=== PATIENT | male | born 1965 | race African-American/Black ===

== ENCOUNTER 2021-06-07 15:08 | Inpatient (IN) | payer OTHER ==
[2021-06-07] MEDS ORDERED: chlordiazePOXIDE HCL 25 MG CAPSULE PO PRN (15:55)
[2021-06-07] MEDS ORDERED: IBUPROFEN 400 MG TABLET (FP) PO PRN (15:55)
[2021-06-07] MEDS ORDERED: BENZOCAINE/MENTHOL (CHLORASEPTIC ) LOZENGE MM PRN (15:55)
[2021-06-07] MEDS ORDERED: MAG HYDROX/AL HYDROX/SIMETH 30 ML UNIT-DOSE CUP PO PRN (15:55)
[2021-06-07] MEDS ORDERED: MAGNESIUM HYDROX 2400MG/30ML ORAL SUSPENSION 30 ML CUP PO PRN (15:55)
[2021-06-07] MEDS ORDERED: MAGNESIUM CITRATE 300 ML BOTTLE PO PRN (15:55)
[2021-06-07] MEDS ORDERED: ONDANSETRON *ODT* 4 MG TABLET SL PRN (15:55)
[2021-06-07] MEDS ORDERED: ACETAMINOPHEN 325 MG TABLET (FP) PO PRN ×2 (15:55)
[2021-06-07] MEDS ORDERED: DICYCLOMINE HCL 10 MG CAPSULE PO PRN (15:55)
[2021-06-07] MEDS ORDERED: BISMUTH SUBSALICYLATE 524 MG/30 ML PO PRN (15:55)
[2021-06-07] MEDS ORDERED: NICOTINE 10 MG CARTRIDGE (INHALER) IH PRN (15:55)
[2021-06-07] MEDS ORDERED: METHOCARBAMOL 500 MG TABLET PO PRN (15:55)
[2021-06-07] MEDS ORDERED: LOPERAMIDE HCL 2 MG CAPSULE PO PRN (15:55)
[2021-06-07 22:24] VITALS: BMI 31.1
[2021-06-08] MEDS: INSULIN SLIDING SCALE (NOVOLOG) 1 VIAL SQ SCH ×3 (00:36→16:20)
[2021-06-08] MEDS: metFORMIN HCL 500 MG TABLET (FP) PO SCH ×3 (00:36→16:21)
[2021-06-08] MEDS: PRENATAL VITAMINS W/ FOLIC ACID TABLET (FP) PO SCH ×2 (00:36→11:33)
[2021-06-08] MEDS: chlordiazePOXIDE HCL 25 MG CAPSULE PO SCH ×6 (00:37→22:44)
[2021-06-08] MEDS: hydrOXYzine PAMOATE 25 MG CAPSULE (FP) PO SCH ×7 (00:37→22:44)
[2021-06-08] MEDS: THIAMINE HCL 100 MG TABLET (FP) PO SCH ×2 (00:49→22:44)
[2021-06-08] MEDS: MELATONIN 5 MG TABLETS PO SCH ×2 (00:50→22:45)
[2021-06-08 10:47] LABS: HEMATOCRIT 37.4 % (35.4-49); HEMOGLOBIN 12.7 GM/dL (11.7-16.9); MCH 31.2 pg (25.7-33.7); MCHC 34.1 g/dl (32.0-35.9); MEAN CELL VOLUME 91.5 fl (80-96); PLATELET COUNT 260 10^3/uL (134-434); RBC 4.08 M/mm3 (4.00-5.60); RDW 13.8 % (11.9-15.9); WHITE BLOOD COUNT 4.7 K/mm3 (4.0-10.0)
[2021-06-08 10:49] LABS: BLOOD UREA NITROGEN 12.7 mg/dL (7-18)
[2021-06-08 10:54] LABS: CALCIUM 8.6 mg/dL (8.5-10.1)
[2021-06-08 10:55] LABS: CREATININE 1.1 mg/dL (0.55-1.3)
[2021-06-08 10:57] LABS: BILIRUBIN,TOTAL 0.3 mg/dL (0.2-1); TOT PROT 6.6 g/dl (6.4-8.2)
[2021-06-08] MEDS ORDERED: INSULIN (NOVOLOG) ASPART 100 UNITS/ML 10ML VIAL ONE (17:51)
[2021-06-09] MEDS: chlordiazePOXIDE HCL 25 MG CAPSULE PO SCH ×4 (06:23→23:43)
[2021-06-09] MEDS: hydrOXYzine PAMOATE 25 MG CAPSULE (FP) PO SCH ×5 (06:23→23:43)
[2021-06-09] MEDS: metFORMIN HCL 500 MG TABLET (FP) PO SCH ×2 (06:23→18:06)
[2021-06-09] MEDS: INSULIN SLIDING SCALE (NOVOLOG) 1 VIAL SQ SCH ×2 (06:45→18:06)
[2021-06-09] MEDS: PRENATAL VITAMINS W/ FOLIC ACID TABLET (FP) PO SCH (11:54)
[2021-06-09] MEDS: buPROPion HCL 75 MG TABLET PO SCH (11:54)
[2021-06-09] MEDS ORDERED: metFORMIN HCL 500 MG TABLET (FP) PO SCH (16:30)
[2021-06-09] MEDS ORDERED: INSULIN (NOVOLOG) ASPART 100 UNITS/ML 10ML VIAL ONE (17:26)
[2021-06-09] MEDS: MELATONIN 5 MG TABLETS PO SCH (23:43)
[2021-06-09] MEDS: THIAMINE HCL 100 MG TABLET (FP) PO SCH (23:43)
[2021-06-10] MEDS ORDERED: chlordiazePOXIDE HCL 10 MG CAPSULE PO PRN
[2021-06-10] MEDS: chlordiazePOXIDE HCL 10 MG CAPSULE PO SCH ×4 (07:21→23:41)
[2021-06-10] MEDS: metFORMIN HCL 500 MG TABLET (FP) PO SCH ×2 (07:21→19:00)
[2021-06-10] MEDS: hydrOXYzine PAMOATE 25 MG CAPSULE (FP) PO SCH ×5 (07:21→23:40)
[2021-06-10] MEDS: INSULIN SLIDING SCALE (NOVOLOG) 1 VIAL SQ SCH ×2 (07:30→19:03)
[2021-06-10] MEDS: PRENATAL VITAMINS W/ FOLIC ACID TABLET (FP) PO SCH (10:55)
[2021-06-10] MEDS: buPROPion HCL 75 MG TABLET PO SCH (10:55)
[2021-06-10] MEDS: MELATONIN 5 MG TABLETS PO SCH (23:40)
[2021-06-10] MEDS: THIAMINE HCL 100 MG TABLET (FP) PO SCH (23:40)
[2021-06-11] MEDS: hydrOXYzine PAMOATE 25 MG CAPSULE (FP) PO SCH ×2 (06:35→14:37)
[2021-06-11] MEDS: chlordiazePOXIDE HCL 10 MG CAPSULE PO SCH ×2 (06:36→18:02)
[2021-06-11] MEDS: metFORMIN HCL 500 MG TABLET (FP) PO SCH ×2 (06:36→18:02)
[2021-06-11] MEDS: INSULIN SLIDING SCALE (NOVOLOG) 1 VIAL SQ SCH ×2 (08:05→16:50)
[2021-06-11] MEDS ORDERED: hydrOXYzine PAMOATE 25 MG CAPSULE (FP) PO PRN (13:11)
[2021-06-11] MEDS: PRENATAL VITAMINS W/ FOLIC ACID TABLET (FP) PO SCH (14:36)
[2021-06-11] MEDS: buPROPion HCL 75 MG TABLET PO SCH (14:36)
[2021-06-11 19:07] LABS: SARS-CoV-2 NAA Not Detected (Not Detected)
[2021-06-11] MEDS: THIAMINE HCL 100 MG TABLET (FP) PO SCH (23:40)
[2021-06-11] MEDS: MELATONIN 5 MG TABLETS PO SCH (23:40)
[2021-06-12] MEDS ORDERED: chlordiazePOXIDE HCL 10 MG CAPSULE PO ONE (05:00)
[2021-06-12] MEDS: metFORMIN HCL 500 MG TABLET (FP) PO SCH (06:52)
[2021-06-12] MEDS: INSULIN SLIDING SCALE (NOVOLOG) 1 VIAL SQ SCH (07:53)
[2021-06-12] MEDS ORDERED: INSULIN (NOVOLOG) ASPART 100 UNITS/ML 10ML VIAL ONE (08:23)
[2021-06-12 09:37] VITALS: BP 133/70; PULSE 78; TEMP 96.9
[2021-06-12] MEDS: buPROPion HCL 75 MG TABLET PO SCH (11:35)
[2021-06-12] MEDS: PRENATAL VITAMINS W/ FOLIC ACID TABLET (FP) PO SCH (11:36)
== END 2021-06-12 12:19 | disposition home or self-care (01) | DRG 774 ==
LOC: YASAS 15:08 → Y6N 18:54
PROVIDERS: ADMIT Allergy & Immunology; ATTEND Allergy & Immunology
PROC: HZ2ZZZZ Detoxification Services for Substance Abuse Treatment (ICD-10-PCS; principal; 2021-06-07)
DX: F10.230 Alcohol dependence with withdrawal, uncomplicated (principal); F14.20 Cocaine dependence, uncomplicated; F17.210 Nicotine dependence, cigarettes, uncomplicated; F19.24 Other psychoactive substance dependence with psychoactive substance-induced mood disorder; F34.1 Dysthymic disorder; F32.A Depression, unspecified; E11.9 Type 2 diabetes mellitus without complications; Z79.84 Long term (current) use of oral hypoglycemic drugs
CPT/HCPCS: 36415; 80053; 82962; 85027; 86780; 93005; 93010; C9803-CS; U0003; U0005

== ENCOUNTER 2022-11-14 14:07 | Inpatient (IN) | payer OTHER ==
[2022-11-14 15:18] VITALS: BMI 30.5
[2022-11-14] MEDS ORDERED: LOPERAMIDE HCL 2 MG CAPSULE PO PRN (18:13)
[2022-11-14] MEDS ORDERED: P-EPHED 60MG/TRIPROLIDI 2.5MG TABLET PO PRN (18:13)
[2022-11-14] MEDS ORDERED: MAGNESIUM HYDROX 2400MG/30ML ORAL SUSPENSION 30 ML CUP PO PRN (18:13)
[2022-11-14] MEDS ORDERED: COLLOIDAL OATMEAL 1 BAR EACH TP PRN (18:13)
[2022-11-14] MEDS ORDERED: ACETAMINOPHEN 325 MG TABLET (FP) PO PRN (18:13)
[2022-11-14] MEDS ORDERED: guaiFENesin 600 MG TABLET.ER (FP) PO PRN (18:13)
[2022-11-14] MEDS ORDERED: POLYETHYLENE GLYCOL (HEALTHYLAX) 3350 17 GM PACKET PO PRN (18:13)
[2022-11-14] MEDS ORDERED: BENZONATATE 200 MG CAPSULE PO PRN (18:13)
[2022-11-14] MEDS ORDERED: MAG HYDROX/AL HYDROX/SIMETH 30 ML UNIT-DOSE CUP PO PRN (18:13)
[2022-11-14] MEDS ORDERED: BENZOCAINE/MENTHOL (CHLORASEPTIC ) LOZENGE MM PRN (18:13)
[2022-11-14] MEDS: THIAMINE HCL 100 MG TABLET (FP) PO SCH (23:02)
[2022-11-14] MEDS: AMOXICILLIN 500 MG CAPSULE (FP) PO SCH (23:02)
[2022-11-14] MEDS: MELATONIN 5 MG TABLETS PO SCH (23:02)
[2022-11-15] MEDS: metFORMIN HCL 500 MG TABLET (FP) PO SCH ×2 (06:41→16:57)
[2022-11-15] MEDS: AMOXICILLIN 500 MG CAPSULE (FP) PO SCH ×3 (07:20→21:25)
[2022-11-15] MEDS: PRENATAL VITAMINS W/ FOLIC ACID TABLET (FP) PO SCH (11:02)
[2022-11-15 11:43] LABS: HEMATOCRIT 38.8 % (35.4-49); HEMOGLOBIN 12.8 GM/dL (11.7-16.9); MCH 30.7 pg (25.7-33.7); MCHC 32.9 g/dl (32.0-35.9); MEAN CELL VOLUME 93.4 fl (80-96); MEAN PLT VOLUME 7.6 fl (7.5-11.1); PLATELET COUNT 317 10^3/uL (134-434); RBC 4.15 M/mm3 (4.00-5.60); RDW 14.1 % (11.9-15.9)
[2022-11-15 11:57] LABS: CHLORIDE 102 mmol/L (98-107); POTASSIUM 4.1 mmol/L (3.5-5.1)
[2022-11-15 11:59] LABS: CALCIUM 8.6 mg/dL (8.5-10.1); CO2 27 mmol/L (21-32)
[2022-11-15 12:00] LABS: BLOOD UREA NITROGEN 10.1 mg/dL (7-18)
[2022-11-15 12:02] LABS: SGPT/ALT 39 U/L (13-61)
[2022-11-15 12:03] LABS: SGOT/AST 35 U/L (15-37)
[2022-11-15 12:04] LABS: BILIRUBIN,TOTAL 0.2 mg/dL (0.2-1); TOT PROT 6.5 g/dl (6.4-8.2)
[2022-11-15 12:05] LABS: ALK PHOS 81 U/L (45-117)
[2022-11-15 12:07] LABS: ANION GAP 11 MMOL/L (8-16); GLUCOSE,RANDOM 454 mg/dL (74-106); SODIUM 140 mmol/L (136-145)
[2022-11-15] MEDS: CIPRODEX AS SCH ×2 (13:48→22:10)
[2022-11-15] MEDS: IBUPROFEN 600 MG TABLET (FP) PO PRN (13:52)
[2022-11-15] MEDS ORDERED: INSULIN (NOVOLOG) ASPART 100 UNITS/ML 10ML VIAL SQ ONE (14:29)
[2022-11-15] MEDS ORDERED: INSULIN (NOVOLOG) ASPART 100 UNITS/ML 10ML VIAL ONE (14:40)
[2022-11-15] MEDS ORDERED: INSULIN SLIDING SCALE (NOVOLOG) 1 VIAL SQ SCH (16:30)
[2022-11-15] MEDS: INSULIN SLIDING SCALE (NOVOLOG) 1 VIAL SQ SCH (16:57)
[2022-11-15] MEDS: THIAMINE HCL 100 MG TABLET (FP) PO SCH (21:25)
[2022-11-15] MEDS: MELATONIN 5 MG TABLETS PO SCH (21:26)
[2022-11-16] MEDS: metFORMIN HCL 500 MG TABLET (FP) PO SCH ×2 (06:50→16:47)
[2022-11-16] MEDS: AMOXICILLIN 500 MG CAPSULE (FP) PO SCH ×3 (06:50→21:30)
[2022-11-16] MEDS: INSULIN SLIDING SCALE (NOVOLOG) 1 VIAL SQ SCH ×3 (06:52→21:31)
[2022-11-16] MEDS ORDERED: INSULIN (NOVOLOG) ASPART 100 UNITS/ML 10ML VIAL ONE (06:53)
[2022-11-16] MEDS: IBUPROFEN 400 MG TABLET (FP) PO PRN (08:39)
[2022-11-16] MEDS: PRENATAL VITAMINS W/ FOLIC ACID TABLET (FP) PO SCH (10:34)
[2022-11-16] MEDS: CIPRODEX AS SCH ×3 (10:35→21:38)
[2022-11-16] MEDS ORDERED: INSULIN (NOVOLOG) ASPART 100 UNITS/ML 10ML VIAL SQ ONE (12:20)
[2022-11-16] MEDS: THIAMINE HCL 100 MG TABLET (FP) PO SCH (21:31)
[2022-11-16] MEDS: MELATONIN 5 MG TABLETS PO SCH (21:31)
[2022-11-17] MEDS: INSULIN SLIDING SCALE (NOVOLOG) 1 VIAL SQ SCH ×4 (07:05→23:47)
[2022-11-17] MEDS: metFORMIN HCL 500 MG TABLET (FP) PO SCH ×2 (07:05→16:49)
[2022-11-17] MEDS: AMOXICILLIN 500 MG CAPSULE (FP) PO SCH ×3 (07:05→21:36)
[2022-11-17] MEDS ORDERED: INSULIN (NOVOLOG) ASPART 100 UNITS/ML 10ML VIAL ONE ×3 (08:03→16:40)
[2022-11-17] MEDS: PRENATAL VITAMINS W/ FOLIC ACID TABLET (FP) PO SCH (09:48)
[2022-11-17] MEDS: CIPRODEX AS SCH ×2 (09:48→21:36)
[2022-11-17] MEDS: THIAMINE HCL 100 MG TABLET (FP) PO SCH (21:36)
[2022-11-17] MEDS: MELATONIN 5 MG TABLETS PO SCH (21:36)
[2022-11-17 23:21] LABS: PH,URINE 8.5 (5.0-8.0); URINE APPEARANCE CLEAR; URINE BILIRUBIN NEGATIVE (NEGATIVE); URINE COLOR YELLOW; URINE GLUCOSE (UA) 3+ (NEGATIVE); URINE KETONE NEGATIVE (NEGATIVE); URINE LEUK ESTERASE NEGATIVE (NEGATIVE); URINE NITRITE NEGATIVE (NEGATIVE); URINE PROTEIN NEGATIVE (NEGATIVE)
[2022-11-18] MEDS: INSULIN SLIDING SCALE (NOVOLOG) 1 VIAL SQ SCH ×3 (06:38→16:27)
[2022-11-18] MEDS ORDERED: INSULIN (NOVOLOG) ASPART 100 UNITS/ML 10ML VIAL ONE ×4 (06:39→21:43)
[2022-11-18] MEDS: AMOXICILLIN 500 MG CAPSULE (FP) PO SCH ×3 (06:39→21:28)
[2022-11-18] MEDS: metFORMIN HCL 500 MG TABLET (FP) PO SCH ×2 (06:39→16:27)
[2022-11-18] MEDS: PRENATAL VITAMINS W/ FOLIC ACID TABLET (FP) PO SCH (10:16)
[2022-11-18] MEDS: CIPRODEX AS SCH ×2 (10:16→21:28)
[2022-11-18] MEDS: THIAMINE HCL 100 MG TABLET (FP) PO SCH (21:28)
[2022-11-18] MEDS: MELATONIN 5 MG TABLETS PO SCH (21:28)
[2022-11-19] MEDS: INSULIN SLIDING SCALE (NOVOLOG) 1 VIAL SQ SCH ×2 (06:15→16:45)
[2022-11-19] MEDS ORDERED: INSULIN (NOVOLOG) ASPART 100 UNITS/ML 10ML VIAL ONE ×3 (06:16→21:36)
[2022-11-19] MEDS: AMOXICILLIN 500 MG CAPSULE (FP) PO SCH ×3 (06:47→21:19)
[2022-11-19] MEDS: metFORMIN HCL 500 MG TABLET (FP) PO SCH ×2 (06:47→16:45)
[2022-11-19] MEDS: CIPRODEX AS SCH ×2 (09:33→21:19)
[2022-11-19] MEDS: PRENATAL VITAMINS W/ FOLIC ACID TABLET (FP) PO SCH (09:33)
[2022-11-19] MEDS: THIAMINE HCL 100 MG TABLET (FP) PO SCH (21:19)
[2022-11-19] MEDS: MELATONIN 5 MG TABLETS PO SCH (21:19)
[2022-11-20] MEDS: INSULIN SLIDING SCALE (NOVOLOG) 1 VIAL SQ SCH ×2 (06:38→16:50)
[2022-11-20] MEDS ORDERED: INSULIN (NOVOLOG) ASPART 100 UNITS/ML 10ML VIAL ONE ×3 (06:39→21:34)
[2022-11-20] MEDS: AMOXICILLIN 500 MG CAPSULE (FP) PO SCH ×3 (06:40→21:29)
[2022-11-20] MEDS: metFORMIN HCL 500 MG TABLET (FP) PO SCH ×2 (06:40→16:50)
[2022-11-20] MEDS: CIPRODEX AS SCH ×2 (10:53→21:30)
[2022-11-20] MEDS: PRENATAL VITAMINS W/ FOLIC ACID TABLET (FP) PO SCH (10:53)
[2022-11-20] MEDS: MELATONIN 5 MG TABLETS PO SCH (21:29)
[2022-11-20] MEDS: THIAMINE HCL 100 MG TABLET (FP) PO SCH (21:29)
[2022-11-21] MEDS ORDERED: INSULIN (NOVOLOG) ASPART 100 UNITS/ML 10ML VIAL ONE ×2 (06:35→16:41)
[2022-11-21] MEDS: INSULIN SLIDING SCALE (NOVOLOG) 1 VIAL SQ SCH ×2 (06:36→16:55)
[2022-11-21] MEDS: AMOXICILLIN 500 MG CAPSULE (FP) PO SCH ×2 (06:36→13:05)
[2022-11-21] MEDS: metFORMIN HCL 500 MG TABLET (FP) PO SCH ×2 (06:36→16:55)
[2022-11-21] MEDS: PRENATAL VITAMINS W/ FOLIC ACID TABLET (FP) PO SCH (09:45)
[2022-11-21] MEDS: CIPRODEX AS SCH ×2 (09:47→21:35)
[2022-11-21] MEDS: MELATONIN 5 MG TABLETS PO SCH (21:34)
[2022-11-21] MEDS: THIAMINE HCL 100 MG TABLET (FP) PO SCH (21:34)
[2022-11-22] MEDS: metFORMIN HCL 500 MG TABLET (FP) PO SCH ×2 (06:30→16:52)
[2022-11-22] MEDS: INSULIN SLIDING SCALE (NOVOLOG) 1 VIAL SQ SCH ×2 (06:32→16:53)
[2022-11-22] MEDS ORDERED: INSULIN (NOVOLOG) ASPART 100 UNITS/ML 10ML VIAL ONE ×2 (06:32→16:52)
[2022-11-22] MEDS: PRENATAL VITAMINS W/ FOLIC ACID TABLET (FP) PO SCH (10:36)
[2022-11-22] MEDS: CIPRODEX AS SCH (10:37)
[2022-11-22] MEDS: THIAMINE HCL 100 MG TABLET (FP) PO SCH (21:39)
[2022-11-22] MEDS: MELATONIN 5 MG TABLETS PO SCH (21:39)
[2022-11-23] MEDS: metFORMIN HCL 500 MG TABLET (FP) PO SCH ×2 (06:39→18:09)
[2022-11-23] MEDS: INSULIN SLIDING SCALE (NOVOLOG) 1 VIAL SQ SCH ×2 (06:40→16:45)
[2022-11-23] MEDS ORDERED: INSULIN (NOVOLOG) ASPART 100 UNITS/ML 10ML VIAL ONE ×3 (07:03→21:31)
[2022-11-23] MEDS: PRENATAL VITAMINS W/ FOLIC ACID TABLET (FP) PO SCH (10:18)
[2022-11-23] MEDS: THIAMINE HCL 100 MG TABLET (FP) PO SCH (21:28)
[2022-11-23] MEDS: MELATONIN 5 MG TABLETS PO SCH (21:28)
[2022-11-23] MEDS: IBUPROFEN 600 MG TABLET (FP) PO PRN (21:29)
[2022-11-24] MEDS: metFORMIN HCL 500 MG TABLET (FP) PO SCH ×2 (06:46→16:28)
[2022-11-24] MEDS: INSULIN SLIDING SCALE (NOVOLOG) 1 VIAL SQ SCH ×2 (07:19→16:30)
[2022-11-24] MEDS ORDERED: INSULIN (NOVOLOG) ASPART 100 UNITS/ML 10ML VIAL ONE ×3 (07:21→21:29)
[2022-11-24] MEDS: PRENATAL VITAMINS W/ FOLIC ACID TABLET (FP) PO SCH (09:57)
[2022-11-24] MEDS: THIAMINE HCL 100 MG TABLET (FP) PO SCH (21:20)
[2022-11-24] MEDS: MELATONIN 5 MG TABLETS PO SCH (21:20)
[2022-11-24] MEDS: IBUPROFEN 600 MG TABLET (FP) PO PRN (21:21)
[2022-11-25] MEDS: metFORMIN HCL 500 MG TABLET (FP) PO SCH ×2 (06:32→16:56)
[2022-11-25] MEDS: INSULIN SLIDING SCALE (NOVOLOG) 1 VIAL SQ SCH ×2 (07:40→16:56)
[2022-11-25] MEDS ORDERED: INSULIN (NOVOLOG) ASPART 100 UNITS/ML 10ML VIAL ONE ×2 (07:49→16:47)
[2022-11-25] MEDS: PRENATAL VITAMINS W/ FOLIC ACID TABLET (FP) PO SCH (10:15)
[2022-11-25] MEDS: MELATONIN 5 MG TABLETS PO SCH (21:31)
[2022-11-25] MEDS: THIAMINE HCL 100 MG TABLET (FP) PO SCH (21:31)
[2022-11-25] MEDS: IBUPROFEN 400 MG TABLET (FP) PO PRN (21:32)
[2022-11-26] MEDS: metFORMIN HCL 500 MG TABLET (FP) PO SCH ×2 (06:52→16:30)
[2022-11-26] MEDS: INSULIN SLIDING SCALE (NOVOLOG) 1 VIAL SQ SCH ×2 (06:54→16:30)
[2022-11-26] MEDS ORDERED: INSULIN (NOVOLOG) ASPART 100 UNITS/ML 10ML VIAL ONE ×2 (08:07→16:22)
[2022-11-26] MEDS: PRENATAL VITAMINS W/ FOLIC ACID TABLET (FP) PO SCH (09:36)
[2022-11-26] MEDS: THIAMINE HCL 100 MG TABLET (FP) PO SCH (21:20)
[2022-11-26] MEDS: MELATONIN 5 MG TABLETS PO SCH (21:20)
[2022-11-27] MEDS: INSULIN SLIDING SCALE (NOVOLOG) 1 VIAL SQ SCH ×2 (06:46→16:51)
[2022-11-27] MEDS ORDERED: INSULIN (NOVOLOG) ASPART 100 UNITS/ML 10ML VIAL ONE ×3 (06:47→21:39)
[2022-11-27] MEDS: metFORMIN HCL 500 MG TABLET (FP) PO SCH ×2 (06:48→16:50)
[2022-11-27] MEDS: PRENATAL VITAMINS W/ FOLIC ACID TABLET (FP) PO SCH (10:10)
[2022-11-27] MEDS: THIAMINE HCL 100 MG TABLET (FP) PO SCH (21:24)
[2022-11-27] MEDS: MELATONIN 5 MG TABLETS PO SCH (21:24)
[2022-11-28] MEDS: INSULIN SLIDING SCALE (NOVOLOG) 1 VIAL SQ SCH (06:22)
[2022-11-28] MEDS ORDERED: INSULIN (NOVOLOG) ASPART 100 UNITS/ML 10ML VIAL ONE (06:23)
[2022-11-28] MEDS: metFORMIN HCL 500 MG TABLET (FP) PO SCH (06:23)
[2022-11-28 07:29] VITALS: BP 134/82; PULSE 71; RESP 17; TEMP 97.8
[2022-11-28] MEDS: PRENATAL VITAMINS W/ FOLIC ACID TABLET (FP) PO SCH (09:34)
== END 2022-11-28 09:43 | disposition home or self-care (01) | DRG 772 ==
LOC: YASAS 14:07 → Y3E 22:01
PROVIDERS: ADMIT Allergy & Immunology; ATTEND Psychiatry & Neurology Pain Medicine
PROC: HZ42ZZZ Group Counseling for Substance Abuse Treatment, Cognitive-Behavioral (ICD-10-PCS; principal; 2022-11-14)
DX: F10.20 Alcohol dependence, uncomplicated (principal); F14.20 Cocaine dependence, uncomplicated; F12.20 Cannabis dependence, uncomplicated; F17.210 Nicotine dependence, cigarettes, uncomplicated; F34.1 Dysthymic disorder; H92.02 Otalgia, left ear; E11.9 Type 2 diabetes mellitus without complications; Z79.84 Long term (current) use of oral hypoglycemic drugs
CPT/HCPCS: 36415; 80053; 81003; 82962; 85027; 86780; 87635; 87811